=== PATIENT | female | born 1975 | race Caucasian/White ===

== ENCOUNTER 2017-07-09 11:06 | Emergency (ER) | payer BC ==
[2017-07-09 11:22] VITALS: BP 144/66; TEMP 97.2; O2SAT 96
[2017-07-09] MEDS ORDERED: predniSONE 20 MG TAB PO ONE (11:29)
[2017-07-09] MEDS ORDERED: AZITHROMYCIN 250 MG TAB PO ONE (11:29)
--- NOTE | 2017-07-09 11:31 | ED.PDOC ---
History of Present Illness - General Chief Complaint: Respiratory Problem Stated Complaint: cough Time Seen by Provider: 07/09/17 11:23 Source: patient Exam Limitations: no limitations - History of Present Illness Initial Comments: the patient is a 41-year-old female presenting to emergency room secondary to cough and congestion as well as body aches and low-grade fever for the last 3-4 days. Appetite has been poor. She does have a history of autoimmune disease. She does take immunosuppressants. Mild headache. No altered mental status. No new rash. Severity: moderate Improving Factors: nothing Worsening Factors: nothing Associated Symptoms: cough, fever/chills, loss of appetite, malaise Allergies/Adverse Reactions: Allergies Levofloxacin [From Levaquin] Allergy (Verified 07/09/17 11:22) Pneumococcal Vaccines Allergy (Verified 07/09/17 11:22) Home Medications: Ambulatory Orders Azithromycin 500 mg PO DAILY #5 tab 07/09/17 predniSONE [Prednisone] 20 mg PO DAILY #3 tab 07/09/17 Review of Systems - Review of Systems Constitutional: States: fever, malaise EENTM: States: nose congestion Respiratory: States: cough Cardiology: States: no symptoms reported Gastrointestinal/Abdominal: States: no symptoms reported Genitourinary: States: no symptoms reported Musculoskeletal: States: no symptoms reported Skin: States: no symptoms reported Neurological: States: no symptoms reported Endocrine: States: no symptoms reported All other Systems: No Change from Baseline Past Medical History (General) - Patient Medical History Hx Asthma: No Surgical History: no surgical history - Social History Hx Tobacco Use: No - e-cigarette Hx Alcohol Use: No Hx Substance Use: No Hx Depression: No - Female History Patient is a Female of Child Bearing Age (10 -59 yrs old): Yes Patient : No Family Medical History - Family History Mother Family History: Unknown Physical Exam - Physical Exam General Appearance: Alert, Comfortable, No apparent distress Eye Exam: bilateral normal Ears, Nose, Throat: hearing grossly normal, nasal congestion, pharyngeal erythema - mild Neck: supple, normal inspection Respiratory: normal breath sounds, no respiratory distress, no accessory muscle use Cardiovascular/Chest: normal peripheral pulses, regular rate, rhythm, no edema Peripheral Pulses: radial,right: 2+, radial,left: 2+, dorsalis pedis,right: 2+, dorsalis pedis,left: 2+ Gastrointestinal/Abdominal: non tender, soft Rectal Exam: deferred Back Exam: normal inspection, no CVA tenderness Extremity: normal range of motion, non-tender, normal inspection, no pedal edema , normal capillary refill 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 It is possible this is the flu however the patient is well past the treatment window. The patient will be covered with azithromycin and prednisone secondary to her background autoimmune diseases. ER warnings were given for any significant worsening. Motrin and Tylenol as well as Mucinex can be used for symptomatic relief. She should follow up with her primary care doctor in the middle of this coming week. Departure - Departure Clinical Impression: Acute bronchitis Disposition: Discharge to Home or Self Care Condition: Fair Departure Forms: ED Discharge - Pt. Copy, Patient Portal Self Enrollment Instructions: DI for Acute Bronchitis Diet: regular diet Activity: increase activity as tolerated Referrals: Devyn Hopkins MD [Primary Care Provider] - 1-5 Days Prescriptions: Azithromycin 500 mg PO DAILY #5 tab predniSONE [Prednisone] 20 mg PO DAILY #3 tab Home Medications: Ambulatory Orders Azithromycin 500 mg PO DAILY #5 tab 07/09/17 predniSONE [Prednisone] 20 mg PO DAILY #3 tab 07/09/17 Additional Instructions: the patient's a 41-year-old female presenting to emergency room secondary to what appears to be a bronchitis for the last 3-4 days. It is possible this is the flu however the patient is well past the treatment window. The patient will be covered with azithromycin and prednisone secondary to her background autoimmune diseases. ER warnings were given for any significant worsening. Motrin and Tylenol as well as Mucinex can be used for symptomatic relief. She should follow up with her primary care doctor in the middle of this coming week.
== END 2017-07-09 11:45 | disposition home or self-care (01) ==
LOC: ER 11:06
DX: J20.9 Acute bronchitis, unspecified (principal); F17.210 Nicotine dependence, cigarettes, uncomplicated; Z86.2 Personal history of diseases of the blood and blood-forming organs and certain disorders involving the immune mechanism
CPT/HCPCS: J7512; Q0144